=== PATIENT | female | born 1990 | race Caucasian/White ===

== ENCOUNTER → 2016-09-27 | Outpatient (CLI) | payer BC, OTHER ==
[2016-09-27 10:11] LABS: CHCM 33.8; HCT 32.5 % (34.0-46.0); HDW 2.91; HGB 10.9 gm/dL (11.4-16.0); MCH 32.1 pg (25.0-35.0); MCHC 33.7 g/dL (31.0-37.0); MCV 95.3 fL (80.0-100.0); Mean Platelet Volume 7.9; RBC 3.41 m/uL (3.80-5.40); RDW 13.1 % (11.5-15.5); WBC 11.8 k/uL (3.8-10.6)
== END | disposition home or self-care (01) ==
LOC: LABWHC1 08:45
PROVIDERS: ATTEND Obstetrics & Gynecology
DX: Z34.82 Encounter for supervision of other normal pregnancy, second trimester (principal); Z3A.00 Weeks of gestation of pregnancy not specified
CPT/HCPCS: 36415; 82950; 85027

== ENCOUNTER 2016-12-26 03:30 | Outpatient (CLI) | payer OTHER, BC ==
[2016-12-26 04:29] VITALS: BP 113/79; PULSE 102; RESP 16; TEMP 97
--- NOTE | 2016-12-26 05:31 | P.MSEPDOC ---
Presenting Problems - Arrival Data Date of Arrival on Unit: 12/26/16 Time of Arrival on Unit: 03:27 Mode of Transport: Wheelchair - Complaint OB-Reason for Admission/Chief Complaint: Possible Onset of Labor Comment: contractions since 2344, pain 8 Medical History - Information : 2 Para: 1 Term: 1 : 0 Abortions: Spontaneous or Elective: 0 Number of Living Children: 1 - Gestational Age Expected Date of Delivery: 12/30/16 Gestational Age by EVERARDO (wks/days): 39 Weeks and 3 Days Review of Systems - Review of Systems Constitutional: No problems Breast: No problems ENT: No problems Cardiovascular: No problems Respiratory: No problems Gastrointestinal: No problems Genitourinary: No problems Musculoskeletal: No problems Neurological: No problems Skin: No problems Vital Signs - Temperature Temperature: 97 F Temperature Source: Temporal Artery Scan - Pulse Right Brachial Pulse Rate: 102 Pulse Assessment Method: Automatic Cuff - Respirations Respiratory Rate: 16 Oxygen Delivery Method: Room Air O2 Sat by Pulse Oximetry: 100 - Blood Pressure Right Arm Blood Pressure: 113/79 Blood Pressure Mean: 90 Blood Pressure Source: Automatic Cuff Medical Screen Scoring (Pre) - Cervical Exam Dilation: 1-3 cm = 1 Membranes: Intact - Uterine Contractions Frequency: > or = 36 weeks =2 - Maternal Vital Signs Maternal Temperature: N/A Maternal Respirations: N/A - Maternal Trauma Maternal Trauma: N/A - Assessment Baseline FHR: 125 Heart Rate - NICHD Category: Category I (Normal) = 0 NST: Reactive - Total Score Total Score (Pre): 3 - Level of Risk Level of Risk: Low (0-5) Medical Screen Scoring (Post) - Post Treatment Level of Risk Post Treatment Level of Risk: Low (0-5) Physician Notification (Post) - Physician Notified Physician Notified Date: 12/26/16 Physician Notified Time: 04:43 Spoke With: rakesh Garcia Order Received: Yes - Notification Comment Comment: d/c home, appointment today 1040 Disposition - Disposition OB Disposition: Discharge to home, Written follow up instructions reviewed Discharge Date: 12/26/16 Discharge Time: 04:45 I agree with the RN Medical Screening Exam: Yes Risk & Benefit of care provided described in d/c instruction: Yes Diagnosis: FALSE LABOR AT OR AFTER 37 COMPLETED WEEKS OF GESTATION
== END 2016-12-26 04:45 | disposition home or self-care (01) ==
LOC: FBPOP 03:30
PROVIDERS: ATTEND Obstetrics & Gynecology
DX: O47.1 False labor at or after 37 completed weeks of gestation (principal); Z3A.39 39 weeks gestation of pregnancy
CPT/HCPCS: 59025; 99213

== ENCOUNTER 2016-12-30 08:28 | Inpatient (IN) | payer BC, OTHER ==
--- NOTE | 2016-12-31 05:42 | P.HPOB ---
History of Present Illness H&P Date: 12/31/16 Chief Complaint: Patient's presenting for requested induction of labor. This patient is a pleasant 26-year-old 2 para 1 female estimated date of confinement 12/30/2016 estimated gestational age 40 and one sevenths weeks who presents to labor and delivery for requested induction of labor. Patient's care has been uncomplicated. Review of Systems Constitutional: Denies chills, Denies fever Ears, nose, mouth and throat: Denies headache, Denies sore throat Cardiovascular: Denies chest pain, Denies shortness of breath Respiratory: Denies cough Gastrointestinal: Reports heartburn Genitourinary: Reports Menstruation: Reports amenorrhea Musculoskeletal: Denies myalgias Integumentary: Denies pruritus, Denies rash Neurological: Denies numbness, Denies weakness Past Medical History Past Medical History: No Reported History History of Any Multi-Drug Resistant Organisms: None Reported Past Surgical History: Appendectomy Past Anesthesia/Blood Transfusion Reactions: No Reported Reaction Past Psychological History: No Psychological Hx Reported Smoking Status: Never smoker Past Alcohol Use History: None Reported Past Drug Use History: None Reported - Past Family History Mother Family Medical History: Hypertension Medications and Allergies Home Medications Medication Instructions Recorded Confirmed Type No Known Home Medications [No 01/28/16 12/26/16 History Known Home Medications] Allergies Allergy/AdvReac Type Severity Reaction Status Date / Time Sulfa (Sulfonamide Allergy Severe Rash/Hives Verified 12/26/16 04:14 Antibiotics) Exam - OBG Physical Exam Abdomen: bowel sounds normal, no diffuse tenderness, no bruit present, no guarding noted, no hepatomegaly, no splenomegaly, no mass Vulva: both: normal Vagina: normal moisture, no discharge Cervix: Cervix in the office was 2 cm dilated. Cervix: no lesion, no discharge Uterus: enlarged (Fundal height is 40 cm.) Results blood type shows that she is A positive, rubella immune, RPR nonreactive, hepatitis B negative, Glucola was normal, group B strep was negative, ultrasounds have been normal. Assessment and Plan (1) Third trimester Narrative/Plan: This is a pleasant 26-year-old 2 para 1 female 40 and one sevenths weeks gestation who is admitted to labor and delivery for requested induction of labor. Plan is induction of labor and anticipate normal vaginal delivery. Status: Acute (2) Elective induction of labor planned Status: Acute
[2016-12-31] MEDS ORDERED: OXYTOCIN 20 UNITS/1000 ML NS 1,000 ML IV SCH ×2 (06:06→17:36)
[2016-12-31] MEDS ORDERED: LIDOCAINE 1% (PF) 10 MG/ML (30 ML SDV) SQ PRN (06:06)
[2016-12-31] MEDS ORDERED: METHYLERGONOVINE 0.2 MG/ML 1 ML AMP IM PRN (06:06)
[2016-12-31] MEDS ORDERED: TERBUTALINE 1 MG/ML VIAL SQ PRN (06:06)
[2016-12-31] MEDS ORDERED: CARBOPROST TROMETHAMINE 250 MCG/ML 1 ML AMP IM PRN (06:06)
[2016-12-31] MEDS ORDERED: OXYTOCIN 10 UNIT/ML 1 ML VIAL IM PRN (06:06)
[2016-12-31 06:17] LABS: Basophils % (A) 0 %; CH 31.8; CHCM 34.3; Eosinophils # (A) 0.2 k/uL (0-0.7); Eosinophils % (A) 2 %; HCT 32.1 % (34.0-46.0); HDW 2.76; HGB 10.8 gm/dL (11.4-16.0); Luc % (Auto) 2; Lymphocytes # (A) 2.1 k/uL (1.0-4.8); Lymphocytes % (A) 21 %; MCH 31.3 pg (25.0-35.0); MCHC 33.6 g/dL (31.0-37.0); MCV 93.2 fL (80.0-100.0); Mean Platelet Volume 7.8; Monocytes # (A) 0.5 k/uL (0-1.0); Monocytes % (A) 5 %; Neutrophils % (A) 71 %; RBC 3.45 m/uL (3.80-5.40); RDW 14.3 % (11.5-15.5); WBC 9.9 k/uL (3.8-10.6); WBC (Perox) 10.04
[2016-12-31] MEDS: LACTATED RINGERS 1,000 ML IV SCH ×3 (06:24→16:16)
[2016-12-31 07:43] VITALS: BMI 29.2
[2016-12-31] MEDS ORDERED: SODIUM CHLORIDE 0.9% 100 ML BAG ONE (10:38)
[2016-12-31] MEDS ORDERED: fentaNYL (PF) 50 MCG/ML 5 ML AMP ONE (10:38)
[2016-12-31] MEDS ORDERED: BUPIVACAINE (PF) 0.25% 30 ML VIAL ONE (10:38)
[2016-12-31] MEDS ORDERED: BUPIVACAINE (PF) 0.25% 25 ML, fentaNYL (PF) 200 MCG in SODIUM CHLORIDE 0.9% 71 ML EPIDURAL ONE (11:35)
--- NOTE | 2016-12-31 17:27 | P.PROBDLV ---
Vaginal Delivery Note - . Vaginal Delivery Note: Normal vaginal delivery viable female Apgars 8 and 9 delivery time is 1705 hrs. Please see dictated H&P for intimate details of this patient's admission. In brief summary this is a pleasant 25-year-old 2 para 1 female 40 and one sevenths weeks gestation who is admitted to labor and delivery for elective induction of labor. Patient is admitted and is 2-3 cm dilated. She is artificial rupture membranes for clear fluid. Labor progresses and she does get an epidural for pain control. Patient quickly thereafter goes to complete and pushes the head to the perineum. Posterior perineum was then infiltrated with 1% lidocaine and a midline episiotomy is made. We then have controlled delivery of the 's head over the perineum. Mouth and nares are bulb suctioned. There is a nuchal cord which is easily reduced. With gentle downward traction we then have deliver the anterior and posterior shoulder and rest this infant's body. This is a vigorous viable female Apgars are 8 and 9 delivery time is 1705 hrs. After delivery of the infant the umbilical cord is doubly clamped and cut appears to be trivascular. The placenta is then spontaneously delivered intact. Inspection of the perineum shows a second-degree midline laceration which is repaired with 3-0 Vicryl usual fashion. Excellent reapproximation is noted. Estimated blood loss is 150 mL. All counts are correct 3. There are no complications. Infant and mother are stable delivery room.
[2016-12-31] MEDS ORDERED: Acetaminophen-Codeine 300-30mg TAB PO PRN ×2 (17:36)
[2016-12-31] MEDS ORDERED: ACETAMINOPHEN TAB 325 MG TAB PO PRN (17:36)
[2016-12-31] MEDS ORDERED: BISACODYL 10 MG SUPP RECTAL PRN (17:36)
[2016-12-31] MEDS ORDERED: HYDROCORTISONE 2.5% RECTAL CREAM 30 GM TUBE RECTAL PRN (17:36)
[2016-12-31] MEDS ORDERED: LANOLIN CREAM 5 GM TUBE TOPICAL PRN (17:36)
[2016-12-31] MEDS ORDERED: WITCH HAZEL 1 EACH MED..PAD TOPICAL PRN (17:36)
[2016-12-31] MEDS ORDERED: SIMETHICONE 80 MG CHEWABLE PO PRN (17:36)
[2016-12-31] MEDS ORDERED: diphenhydrAMINE 50 MG/ML 1 ML VIAL IVP PRN (17:36)
[2016-12-31] MEDS ORDERED: BENZOCAINE SPRAY 57GM TOPICAL PRN (17:36)
[2016-12-31] MEDS ORDERED: ZOLPIDEM 5 MG TAB PO PRN (17:36)
[2016-12-31] MEDS ORDERED: IBUPROFEN 600 MG TAB PO PRN (17:36)
[2016-12-31] MEDS ORDERED: diphenhydrAMINE 25 MG CAP PO PRN (17:36)
[2016-12-31] MEDS: SENNOSIDES-DOCUSATE SODIUM 1 EACH TAB PO SCH ×2 (19:55→20:07)
--- NOTE | 2017-01-01 05:27 | P.PNOBGVD ---
Subjective - Subjective Patient reports: Reports appetite normal, Reports voiding normally, Reports pain well controlled, Reports ambulating normally : doing well Objective - Latest Vital Signs Latest vital signs: Vital Signs Temp Pulse Resp BP Pulse Ox 01/01/17 03:41 98.1 F 94 16 118/64 01/01/17 00:00 98.6 F 85 16 114/60 12/31/16 19:36 97.2 F L 101 H 16 129/67 12/31/16 19:01 88 20 108/62 12/31/16 18:23 93 20 114/64 12/31/16 18:08 89 20 113/62 12/31/16 17:47 102 H 20 111/52 12/31/16 17:32 100 20 116/56 12/31/16 17:17 97 20 119/56 12/31/16 07:30 97.3 F L 101 H 18 121/78 99 Intake and Output 12/31/16 12/31/16 01/01/17 14:59 22:59 06:59 Intake Total 1000 1100 Output Total 200 150 Balance 800 950 Intake: IV 1000 100 Lactated Ringers 1,000 ml 1000 100 @ 125 mls/hr IV .Q8H VIRGEN Rx#:[id number] Intake, IV Titration 1000 Amount Oxytocin 20 Units/1000 ml 1000 Ns 1,000 ml @ Per Protocol IV .Q0M VIRGEN Rx#: [id number] Output: Urine 200 Estimated Blood Loss 150 Other: # Voids 1 1 Weight 89.811 kg Patient Weight 01/01/17 06:59 Weight 89.811 kg - Exam Lungs: bilateral: normal Chest: Normal S1, Normal S2 Extremities: Present: normal Abdomen: Present: normal appearance, soft Uterus: Present: normal, firm - Labs Labs: Abnormal Lab Results - Last 24 Hours (Table) 12/31/16 Range/Units 06:00 RBC 3.45 L (3.80-5.40) m/uL Hgb 10.8 L (11.4-16.0) gm/dL Hct 32.1 L (34.0-46.0) % Assessment and Plan (1) Third trimester Narrative/Plan: day #1. Patient is resting without complaints and wishes to go home. Vital signs are stable she's afebrile. Uterus is firm nontender she's having normal lochia. My impression this is a normal course. Plan is to continue routine care most likely discharge home today Current Visit: Yes Status: Acute Code(s): Z33.1 - STATE, INCIDENTAL SNOMED Code(s): 32421805 (2) Elective induction of labor planned Current Visit: Yes Status: Acute Code(s): JUS6267 - SNOMED Code(s): 828657820
--- NOTE | 2017-01-01 05:32 | P.DS ---
Providers Date of admission: 12/31/16 05:53 Expected date of discharge: 01/01/17 Attending physician: Mihir Majano Primary care physician: Stated None - Discharge Diagnosis(es) (1) Third trimester Current Visit: Yes Status: Acute (2) Elective induction of labor planned Current Visit: Yes Status: Acute Hospital Course: Please see dictated H&P for intimate details of this patient's admission. Brief summary this is a pleasant 26-year-old 2 para 1 female 40 and one sevenths weeks gestation admitted to labor and delivery for elective induction of labor. Patient is admitted has uncomplicated induction of labor goes on have a vaginal delivery viable female infant. Please see dictated delivery note. day 1 patient is doing well without complaints wishes to go home. Patient's felt stable for discharge home follow up with me in 6 weeks. Procedures: Induction of labor normal vaginal delivery Patient Condition at Discharge: Good Plan - Discharge Summary New Discharge Prescriptions: New Acetaminophen-Codeine 300-30mg [Tylenol w/codeine #3] 1 - 2 each PO Q4HR PRN #30 tab PRN Reason: Mild Pain exceeding Tylenol Ibuprofen [Motrin] 600 mg PO Q6HR PRN #40 tab PRN Reason: Mild Pain Or Fever >= 100.5 Discharge Medication List Acetaminophen-Codeine 300-30mg [Tylenol w/codeine #3] 1 - 2 each PO Q4HR PRN # 30 tab 01/01/17 [Rx] Ibuprofen [Motrin] 600 mg PO Q6HR PRN #40 tab 01/01/17 [Rx] Follow up Appointment(s)/Referral(s): Mihir Majano MD [STAFF PHYSICIAN] - 02/13/17 10:15 am Patient Instructions/Handouts: Vaginal Delivery (DC) Activity/Diet/Wound Care/Special Instructions: No intercourse or anything per vagina for 6 weeks. Call if any fever, chills, excessive vaginal bleeding, and/or abdominal pain. Discharge Disposition: HOME SELF-CARE
[2017-01-01 10:28] VITALS: RESP 18
[2017-01-01] MEDS: SENNOSIDES-DOCUSATE SODIUM 1 EACH TAB PO SCH (10:28)
[2017-01-01 16:00] VITALS: BP 115/68; PULSE 88; TEMP 98.5
== END 2017-01-01 18:49 | disposition home or self-care (01) | DRG 775 ==
LOC: 4FBP 12-31 05:53
PROVIDERS: ADMIT Obstetrics & Gynecology; ATTEND Obstetrics & Gynecology
PROC: 10E0XZZ Delivery of Products of Conception, External Approach (ICD-10-PCS; principal; 2016-12-31)
PROC: 0W8NXZZ Division of Female Perineum, External Approach (ICD-10-PCS; principal; 2016-12-31)
PROC: 3E0R3CZ (ICD-10-PCS; principal; 2016-12-31)
PROC: 10907ZC Drainage of Amniotic Fluid, Therapeutic from Products of Conception, Via Natural or Artificial Opening (ICD-10-PCS; principal; 2016-12-31)
PROC: 00HU33Z Insertion of Infusion Device into Spinal Canal, Percutaneous Approach (ICD-10-PCS; principal; 2016-12-31)
PROC: 0KQM0ZZ Repair Perineum Muscle, Open Approach (ICD-10-PCS; principal; 2016-12-31)
DX: O69.81X0 Labor and delivery complicated by cord around neck, without compression, not applicable or unspecified (principal); O70.1 Second degree perineal laceration during delivery; Z37.0 Single live birth; Z3A.40 40 weeks gestation of pregnancy
CPT/HCPCS: 85025; 88307

== ENCOUNTER → 2020-07-05 | Outpatient (CLI) | payer OTHER | END | disposition home or self-care (01) | LOC: LABWHC1 10:03 | PROVIDERS: ATTEND Nurse Practitioner Family | DX: R43.0 Anosmia (principal) | CPT/HCPCS: U0003; C9803 ==

== ENCOUNTER 2021-04-27 19:55 | Emergency (ER) | payer OTHER ==
[2021-04-27 20:14] VITALS: RESP 20
[2021-04-27] MEDS ORDERED: SODIUM CHLORIDE 0.9% 500 ML 500 ML IV STA (20:48)
--- NOTE | 2021-04-27 21:40 | XR ---
EXAMINATION TYPE: XR chest 2V DATE OF EXAM: 04/27/2021 COMPARISON: NONE HISTORY: Chest pain TECHNIQUE: 2 views FINDINGS: Heart and mediastinum are normal. Lungs are clear. Diaphragm is normal. Bony thorax is inta ct. IMPRESSION: Normal chest.
[2021-04-27 21:58] LABS: Basophils % (A) 1 %; Eosinophils # (A) 0.1 k/uL (0-0.7); Eosinophils % (A) 1 %; HCT 36.4 % (34.0-46.0); HGB 12.3 gm/dL (11.4-16.0); Lymphocytes # (A) 1.3 k/uL (1.0-4.8); Lymphocytes % (A) 18 %; MCH 31.8 pg (25.0-35.0); MCHC 33.7 g/dL (31.0-37.0); MCV 94.3 fL (80.0-100.0); Mean Platelet Volume 8.1; Monocytes # (A) 0.2 k/uL (0-1.0); Monocytes % (A) 3 %; Neutrophils # (A) 5.4 k/uL (1.3-7.7); Neutrophils % (A) 76 %; Platelet Count 290 k/uL (150-450); RBC 3.86 m/uL (3.80-5.40); RDW 12.3 % (11.5-15.5); WBC 7.1 k/uL (3.8-10.6)
[2021-04-27 22:07] LABS: Amorphous Sediment,Urine Rare /hpf; Appearance,Urine Clear (Clear); Bacteria,Urine Rare /hpf; Bilirubin,Urine Negative (Negative); Blood,Urine Small (Negative); Color,Urine Colorless; Glucose,Urine (UA) Negative (Negative); Hyaline Casts,Urine 3 /lpf (0-2); Ketones,Urine Negative (Negative); Leukocyte Esterase,Urine Negative (Negative); Mucus,Urine Rare /hpf; Nitrite,Urine Negative (Negative); Protein,Urine Negative (Negative); RBC,Urine 1 /hpf (0-5); Specific Gravity,Urine 1.007 (1.001-1.035); Squamous Epithelial Cell,Urine 2 /hpf (0-4); Urobilinogen,Urine <2.0 mg/dL (<2.0); WBC,Urine 1 /hpf (0-5)
[2021-04-27 22:16] LABS: Amphetamine Screen,Urine Not Detected (NotDetected); Barbiturate Screen,Urine Not Detected (NotDetected); Benzodiazepines Screen,Urine Not Detected (NotDetected); Cocaine Screen,Urine Not Detected (NotDetected); Methadone Screen, Urine Not Detected (NotDetected); Opiate Screen,Urine Not Detected (NotDetected); Oxycodone Screen, Urine Not Detected (NotDetected); Phencyclidine Screen,Urine Not Detected (NotDetected); Tricyclic Antidepressant,Urine Not Detected (NotDetected); Urn Cannabinoid Scrn Not Detected (NotDetected)
[2021-04-27 22:20] LABS: ALT 13 U/L (4-34); AST 28 U/L (14-36); African American GFR (CKD) >90 (>60 ml/min/1.73 sqM); Albumin 4.5 g/dL (3.5-5.0); Alkaline Phosphatase 31 U/L (38-126); Anion Gap 11 mmol/L; Blood Urea Nitrogen 12 mg/dL (7-17); Calcium 8.7 mg/dL (8.4-10.2); Carbon Dioxide 20 mmol/L (22-30); Chloride 109 mmol/L (98-107); Glucose 105 mg/dL (74-99); Lipase 131 U/L (23-300); Magnesium 2.1 mg/dL (1.6-2.3); Non-African American GFR(CKD) >90 (>60 ml/min/1.73 sqM); Potassium 4.7 mmol/L (3.5-5.1); Sodium 140 mmol/L (137-145); Total Bilirubin 0.4 mg/dL (0.2-1.3); Total Protein 7.4 g/dL (6.3-8.2)
[2021-04-27 22:29] LABS: Alcohol 252 mg/dL
--- NOTE | 2021-04-27 22:39 | ED ---
Alcohol HPI - General Chief Complaint: Alcohol Stated Complaint: ETOH Time Seen by Provider: 04/27/21 20:40 Source: patient Mode of arrival: ambulatory Limitations: no limitations - History of Present Illness Initial Comments: 30-year-old female presents to the emergency department with a chief complaint of alcohol intoxication. She was brought to the emergency department via EMS. states the patient was out and has been drinking all day today. Patient reports she may have had up to 3 bottles of wine. states she likely also had some beer with that. He reports that he picked her up from the bar and then while he brought her inside a house, she was supposedly not responsive and he began to do CPR. However then she was responsive to stimuli but he still decided to call EMS. Patient states that she feels tired but has no other complaints. - Related Data Previous Rx's Medication Instructions Recorded Acetaminophen-Codeine 300-30mg 1 - 2 each PO Q4HR PRN #30 tab 01/01/17 [Tylenol w/codeine #3] Ibuprofen [Motrin] 600 mg PO Q6HR PRN #40 tab 01/01/17 Allergies Allergy/AdvReac Type Severity Reaction Status Date / Time Sulfa (Sulfonamide Allergy Severe Rash/Hives Verified 04/27/21 20:14 Antibiotics) Review of Systems ROS Statement: Those systems with pertinent positive or pertinent negative responses have been documented in the HPI. ROS Other: All systems not noted in ROS Statement are negative. Past Medical History Past Medical History: No Reported History Additional Past Medical History / Comment(s): Heart palpatations History of Any Multi-Drug Resistant Organisms: None Reported Past Surgical History: Appendectomy Past Anesthesia/Blood Transfusion Reactions: No Reported Reaction Past Psychological History: No Psychological Hx Reported Smoking Status: Never smoker Past Alcohol Use History: Occasional Past Drug Use History: None Reported - Past Family History Mother Family Medical History: Hypertension General Exam Limitations: no limitations General appearance: alert, in no apparent distress, appears intoxicated Head exam: Present: atraumatic, normocephalic, normal inspection Eye exam: Present: normal appearance, PERRL, EOMI Pupils: Present: normal accommodation ENT exam: Present: normal exam, normal oropharynx, mucous membranes moist Neck exam: Present: normal inspection, full ROM. Absent: tenderness Respiratory exam: Present: normal lung sounds bilaterally. Absent: respiratory distress Cardiovascular Exam: Present: regular rate, normal rhythm, normal heart sounds. Absent: systolic murmur, diastolic murmur GI/Abdominal exam: Present: soft. Absent: distended, tenderness, guarding, rebound Extremities exam: Present: normal inspection, full ROM Back exam: Present: normal inspection, full ROM Neurological exam: Present: alert, oriented X3 Psychiatric exam: Present: normal affect, normal mood Skin exam: Present: warm, dry, intact, normal color Course Vital Signs 04/27/21 04/27/21 04/27/21 20:09 22:00 23:03 Temperature 97.6 F 98.2 F Pulse Rate 83 84 76 Respiratory 20 20 20 Rate Blood Pressure 113/82 120/77 118/77 O2 Sat by Pulse 99 98 98 Oximetry Medical Decision Making - Medical Decision Making 30-year-old female presents to emergency Department for intoxication. On physical examination, patient is resting comfortably in bed. No focal neural deficits. Patient does appear to be intoxicated. Chest x-ray is unremarkable. Laboratory work shows no acute findings. She does have a blood alcohol of 0.252. Patient was given 1 L of IV bolus fluids. She denies any homicidal, suicidal thoughts or ideations. There are discharged with outpatient follow-up. - Lab Data Result diagrams: 04/27/21 21:39 04/27/21 21:39 Lab Results 04/27/21 04/27/21 04/27/21 Range/Units 21:39 21:39 21:39 WBC 7.1 (3.8-10.6) k/uL RBC 3.86 (3.80-5.40) m/uL Hgb 12.3 (11.4-16.0) gm/dL Hct 36.4 (34.0-46.0) % MCV 94.3 (80.0-100.0) fL MCH 31.8 (25.0-35.0) pg MCHC 33.7 (31.0-37.0) g/dL RDW 12.3 (11.5-15.5) % Plt Count 290 (150-450) k/uL MPV 8.1 Neutrophils % 76 % Lymphocytes % 18 % Monocytes % 3 % Eosinophils % 1 % Basophils % 1 % Neutrophils # 5.4 (1.3-7.7) k/uL Lymphocytes # 1.3 (1.0-4.8) k/uL Monocytes # 0.2 (0-1.0) k/uL Eosinophils # 0.1 (0-0.7) k/uL Basophils # 0.0 (0-0.2) k/uL Sodium 140 (137-145) mmol/L Potassium 4.7 (3.5-5.1) mmol/L Chloride 109 H (98-107) mmol/L Carbon Dioxide 20 L (22-30) mmol/L Anion Gap 11 mmol/L BUN 12 (7-17) mg/dL Creatinine 0.61 (0.52-1.04) mg/dL Est GFR (CKD-EPI)AfAm >90 (>60 ml/min/1.73 sqM) Est GFR (CKD-EPI)NonAf >90 (>60 ml/min/1.73 sqM) Glucose 105 H (74-99) mg/dL Calcium 8.7 (8.4-10.2) mg/dL Magnesium 2.1 (1.6-2.3) mg/dL Total Bilirubin 0.4 (0.2-1.3) mg/dL AST 28 (14-36) U/L ALT 13 (4-34) U/L Alkaline Phosphatase 31 L (38-126) U/L Total Protein 7.4 (6.3-8.2) g/dL Albumin 4.5 (3.5-5.0) g/dL Lipase 131 (23-300) U/L Urine Color Colorless Urine Appearance Clear (Clear) Urine pH 5.0 (5.0-8.0) Ur Specific [place] 1.007 (1.001-1.035) Urine Protein Negative (Negative) Urine Glucose (UA) Negative (Negative) Urine Ketones Negative (Negative) Urine Blood Small H (Negative) Urine Nitrite Negative (Negative) Urine Bilirubin Negative (Negative) Urine Urobilinogen <2.0 (<2.0) mg/dL Ur Leukocyte Esterase Negative (Negative) Urine RBC 1 (0-5) /hpf Urine WBC 1 (0-5) /hpf Ur Squamous Epith Cells 2 (0-4) /hpf Amorphous Sediment Rare H (None) /hpf Urine Bacteria Rare H (None) /hpf Hyaline Casts 3 H (0-2) /lpf Urine Mucus Rare H (None) /hpf Urine HCG, Qual (Not Detectd) Urine Opiates Screen Not Detected (NotDetected) Ur Oxycodone Screen Not Detected (NotDetected) Urine Methadone Screen Not Detected (NotDetected) Ur Propoxyphene Screen Not Detected (NotDetected) Ur Barbiturates Screen Not Detected (NotDetected) U Tricyclic Antidepress Not Detected (NotDetected) Ur Phencyclidine Scrn Not Detected (NotDetected) Ur Amphetamines Screen Not Detected (NotDetected) U Methamphetamines Scrn Not Detected (NotDetected) U Benzodiazepines Scrn Not Detected (NotDetected) Urine Cocaine Screen Not Detected (NotDetected) U Marijuana (THC) Screen Not Detected (NotDetected) Serum Alcohol 252 H* mg/dL 04/27/21 Range/Units 21:39 WBC (3.8-10.6) k/uL RBC (3.80-5.40) m/uL Hgb (11.4-16.0) gm/dL Hct (34.0-46.0) % MCV (80.0-100.0) fL MCH (25.0-35.0) pg MCHC (31.0-37.0) g/dL RDW (11.5-15.5) % Plt Count (150-450) k/uL MPV Neutrophils % % Lymphocytes % % Monocytes % % Eosinophils % % Basophils % % Neutrophils # (1.3-7.7) k/uL Lymphocytes # (1.0-4.8) k/uL Monocytes # (0-1.0) k/uL Eosinophils # (0-0.7) k/uL Basophils # (0-0.2) k/uL Sodium (137-145) mmol/L Potassium (3.5-5.1) mmol/L Chloride (98-107) mmol/L Carbon Dioxide (22-30) mmol/L Anion Gap mmol/L BUN (7-17) mg/dL Creatinine (0.52-1.04) mg/dL Est GFR (CKD-EPI)AfAm (>60 ml/min/1.73 sqM) Est GFR (CKD-EPI)NonAf (>60 ml/min/1.73 sqM) Glucose (74-99) mg/dL Calcium (8.4-10.2) mg/dL Magnesium (1.6-2.3) mg/dL Total Bilirubin (0.2-1.3) mg/dL AST (14-36) U/L ALT (4-34) U/L Alkaline Phosphatase (38-126) U/L Total Protein (6.3-8.2) g/dL Albumin (3.5-5.0) g/dL Lipase (23-300) U/L Urine Color Urine Appearance (Clear) Urine pH (5.0-8.0) Ur Specific [place] (1.001-1.035) Urine Protein (Negative) Urine Glucose (UA) (Negative) Urine Ketones (Negative) Urine Blood (Negative) Urine Nitrite (Negative) Urine Bilirubin (Negative) Urine Urobilinogen (<2.0) mg/dL Ur Leukocyte Esterase (Negative) Urine RBC (0-5) /hpf Urine WBC (0-5) /hpf Ur Squamous Epith Cells (0-4) /hpf Amorphous Sediment (None) /hpf Urine Bacteria (None) /hpf Hyaline Casts (0-2) /lpf Urine Mucus (None) /hpf Urine HCG, Qual Not Detected (Not Detectd) Urine Opiates Screen (NotDetected) Ur Oxycodone Screen (NotDetected) Urine Methadone Screen (NotDetected) Ur Propoxyphene Screen (NotDetected) Ur Barbiturates Screen (NotDetected) U Tricyclic Antidepress (NotDetected) Ur Phencyclidine Scrn (NotDetected) Ur Amphetamines Screen (NotDetected) U Methamphetamines Scrn (NotDetected) U Benzodiazepines Scrn (NotDetected) Urine Cocaine Screen (NotDetected) U Marijuana (THC) Screen (NotDetected) Serum Alcohol mg/dL Disposition Clinical Impression: Alcoholic intoxication Disposition: HOME SELF-CARE Condition: Stable Instructions (If sedation given, give patient instructions): Alcohol Intoxication (ED) Additional Instructions: Please return to the Emergency Department if symptoms worsen or any other concerns. Is patient prescribed a controlled substance at d/c from ED?: No Referrals: Favio Alexis III, MD [Primary Care Provider] - 1-2 days Time of Disposition: 22:38
[2021-04-27 23:04] VITALS: BP 118/77; PULSE 76; TEMP 98.2
== END 2021-04-27 23:03 | disposition home or self-care (01) ==
LOC: EC 19:55
DX: F10.129 Alcohol abuse with intoxication, unspecified (principal); Z88.2 Allergy status to sulfonamides
CPT/HCPCS: 36415; 71046; 80053; 80306; 80320; 81001; 81025; 83690; 83735; 85025; 99284